=== PATIENT | male | born 1970 | race Caucasian/White ===

== ENCOUNTER 2021-05-27 10:43 | Emergency (ER) | payer OTHER, SELFPAY ==
[2021-05-27 10:49] VITALS: BP 155/89; PULSE 81; RESP 16; TEMP 36.6; O2SAT 100
[2021-05-27 10:51] VITALS: BP 155/89; PULSE 81; RESP 16; TEMP 36.6; O2SAT 100
--- NOTE | 2021-05-27 11:15 | ED.URI ---
HPI - URI/Sore Throat General Chief Complaint: Upper Respiratory Infection Stated Complaint: COUGH Time Seen by Provider: 05/27/21 11:09 Source: patient and RN notes reviewed Mode of arrival: ambulatory Limitations: no limitations History of Present Illness HPI Narrative: 51 year old male presents with concern for 10-day history of sinus congestion, drainage, cough. Reports cough keeping him awake at night, he has to sit up to sleep to improve cough. Reports he has been taking DayQuil and NyQuil [id number] with little relief. He denies fever, body aches, chills, sweats. Reports postnasal drainage. He denies diarrhea. Reports one episode of nausea and vomiting. Denies known sick contacts, has been fully vaccinated for Covid. Shamika has had 3 - Covid test. MD elicited complaint: nasal congestion Related Data Home Medications Medication Instructions Recorded Confirmed olmesartan 05/27/21 Allergies Allergy/AdvReac Type Severity Reaction Status Date / Time Penicillins Allergy Unknown Unknown Verified 09/15/17 10:24 Review of Systems Review of Systems: CONSTITUTIONAL: Reports malaise. Denies chills, sweats, or fever. EYES: Denies visual changes, redness, or discharge. ENT: Reports rhinorrhea, congestion, sinus pain. Denies otalgia and sore throat. CARDIOVASCULAR: Denies chest pain, palpitations, or edema. RESPIRATORY: Reports cough. Denies dyspnea. GASTROINTESTINAL: Denies abdominal pain, nausea, vomiting, diarrhea SKIN: Denies rash or itching. MUSCULOSKELETAL: Denies myalgia. NEUROLOGIC: Denies headache. All systems reviewed & are unremarkable except as noted in HPI and below PMFSH Family History Family History (Updated 09/15/17 @ 10:24 by DOCTOR UNKNOWN) Mother Family history of malignant neoplasm Social History Social History Smoking status: Former smoker Smoking end date: 08/11/04 Alcohol intake: current Comments At time of signature, agree with nursing past medical, surgical, social and family history. There is no relevant family history pertinent to the presenting complaint Exam Narrative: GENERAL: Well-appearing, well-nourished, and in no acute distress. HEAD: Normocephalic EYES: PERRLA, conjunctivae clear ENT: Nares clear, turbinates edematous and erythematous. Mucous membranes moist. TM pearly gomez with dull light reflex bilaterally; no tragal tenderness. Oropharynx not erythematous without lesions. Tonsils not enlarged and without exudate, no drooling, no hoarseness, no trismus, uvula midline. NECK: Supple. No lymphadenopathy CHEST: Clear to auscultation, breath sounds equal. No wheezing, rhonchi, rales, or stridor. No respiratory distress, speaks in full sentences. HEART: Regular rate and rhythm. No murmur heard. SKIN: Warm, dry, no rash. NEURO: Alert and oriented x3. PSYCH: Normal mood and affect Course Course Emergency Course: Patient is aware of diagnosis, understands and agrees to treatment plan. Anticipatory guidance given. Patient agrees to follow-up as directed and is aware of reasons to seek care at the emergency department. Portions of this record may have been created with voice recognition software Vital Signs Vital signs: Vital Signs Temperature 98 F 05/27/21 10:49 Pulse Rate 81 05/27/21 10:49 Respiratory Rate 16 05/27/21 10:49 Blood Pressure 155/89 H 05/27/21 10:49 Pulse Oximetry 100 05/27/21 10:49 Temperature 98 F 05/27/21 10:51 Pulse Rate 81 05/27/21 10:51 Respiratory Rate 16 05/27/21 10:51 Blood Pressure 155/89 H 05/27/21 10:51 Pulse Oximetry 100 05/27/21 10:51 Reviewed. MDM - URI/Sore Throat MDM Narrative Medical decision making narrative: Differential diagnosis considered: Frey virus, strep pharyngitis, allergic rhinitis, upper respiratory tract infection, sinusitis, rhinosinusitis, nasopharyngitis. viral pharyngitis, otitis media, otitis externa, pneumonia, bronchitis, viral cough syndrome, viral syndrome, and
== END 2021-05-27 11:26 | disposition home or self-care (01) ==
PROVIDERS: Emergency Provider Nurse Practitioner; PCP Internal Medicine
DX: J32.9 Chronic sinusitis, unspecified (principal); J40 Bronchitis, not specified as acute or chronic; Z87.891 Personal history of nicotine dependence
CPT/HCPCS: 99213; G0463

== ENCOUNTER 2021-12-12 10:16 | Emergency (ER) | payer OTHER, SELFPAY ==
[2021-12-12 10:20] VITALS: BP 145/86; PULSE 76; RESP 18; TEMP 36.5; O2SAT 97
--- NOTE | 2021-12-12 10:20 | ED.URI ---
HPI - URI/Sore Throat General Chief Complaint: Upper Respiratory Infection Stated Complaint: COUGH/CONGESTION/EXPOSURE TO BACTERIAL PNEUMONIA Time Seen by Provider: 12/12/21 10:21 Source: patient and RN notes reviewed History of Present Illness HPI Narrative: Patient is a 51-year-old male who presents the urgent care with complaints of coughing fits and chest congestion. Patient states that it started last night and he was unable to sleep flat due to the persistent coughing. Patient states he took ibuprofen and cold and sinus medication. Patient states that he was exposed to bacterial pneumonia at work. Patient denies of any fever, chills, nausea, vomiting, sore throat or shortness of breath. No other acute complaints. No acute distress noted. Patient aware of the plan of care. Some parts of this dictation were generated by voice recognition software and may contain typographical and/or grammatical inaccuracies. Related Data Home Medications Medication Instructions Recorded Confirmed olmesartan 20 mg DIRECTED 05/27/21 12/12/21 Allergies Allergy/AdvReac Type Severity Reaction Status Date / Time Penicillins Allergy Unknown Unknown Verified 09/15/17 10:24 Review of Systems Review of Systems: CONSTITUTIONAL: Denies fever, chills, or sweats. EYES: Denies visual changes, redness, or discharge. ENT: Denies rhinorrhea, congestion, sore throat, or otalgia. CARDIOVASCULAR: Denies chest pain, palpitations, or edema. RESPIRATORY: Reports of chest congestion and coughing fits GASTROINTESTINAL: Denies abdominal pain, nausea, vomiting, or diarrhea. GENITOURINARY: Denies dysuria or hematuria. SKIN: Denies rash or itching. MUSCULOSKELETAL: Denies back pain, joint pain, or myalgia. NEUROLOGIC: Denies headache, numbness, or weakness. All other systems reviewed are negative, except as documented in HPI. PMFSH Family History Family History (Updated 09/15/17 @ 10:24 by DOCTOR UNKNOWN) Mother Family history of malignant neoplasm Social History Social History Smoking status: Former smoker Smoking end date: 08/11/04 Alcohol intake: current Comments At the time of my signature, I reviewed and agree with the nursing past medical, surgical, social, and family history. There is no relevant family history pertinent to the patient complaint. Exam Narrative: GENERAL: This is a well-nourished, well-developed patient, in no apparent distress. HEAD: normocephalic, atraumatic. EYES: PERRL. Sclera clear/white. Vision is grossly intact. EARS: External ears normal, auditory canals clear and without drainage, TMs normal without perforation. Hearing grossly intact. NOSE: External nose normal with no obvious nasal discharge, nares without redness, no rhinorrhea. THROAT: Mucous membranes moist, posterior pharynx clear. Mild postnasal drainage NECK: Neck supple CARDIOVASCULAR: Regular rate and rhythm without murmurs, gallops, or rubs. RESPIRATORY: Clear to auscultation. Breath sounds equal bilaterally. No wheezes, rales, or rhonchi. SKIN: warm, intact with no suspicious lesions or rash, good texture and turgor. NEURO: awake, alert, and oriented to person, place and time. There were no obvious focal neurologic abnormalities. EXTREMITIES: No clubbing, cyanosis, or edema. Course Course Level of Care: Express Care Visit Vital Signs Vital signs: Vital Signs Temperature 97.7 F 12/12/21 10:20 Pulse Rate 76 12/12/21 10:20 Respiratory Rate 18 12/12/21 10:20 Blood Pressure 145/86 H 12/12/21 10:20 Pulse Oximetry 97 12/12/21 10:20 Temperature 97.7 F 12/12/21 10:20 Pulse Rate 76 12/12/21 10:20 Respiratory Rate 18 12/12/21 10:20 Blood Pressure 145/86 H 12/12/21 10:20 Pulse Oximetry 97 12/12/21 10:20 Reviewed-patient is informed that they may have pre-hypertension or hypertension based on a blood pressure reading in the department. I recommend the patient call the primary care provider listed on their dis
== END 2021-12-12 10:53 | disposition home or self-care (01) ==
PROVIDERS: Emergency Provider Nurse Practitioner Family; PCP Internal Medicine
DX: R05.9 Cough, unspecified (principal); Z87.891 Personal history of nicotine dependence
CPT/HCPCS: 87804; 99213; G0463

== ENCOUNTER 2023-07-03 11:46 | Emergency (ER) | payer OTHER, SELFPAY ==
--- NOTE | ~2023-07-03 | XR_ITS ---
EXAMINATION: XR chest 2V DATE: 07/03/2023 12:26 INDICATION: Cough TECHNIQUE: PA and lateral views of the chest are obtained. COMPARISON: None available FINDINGS: The lungs are free of acute opacities. No pleural effusion or pneumothorax. The cardiomedia stinal silhouette is normal. The visualized bones and soft tissues are unremarkable. IMPRESSION: 1. No acute cardiopulmonary abnormality. Reviewed, dictated and finalized at location [facility]
[2023-07-03 11:57] VITALS: BP 140/76; PULSE 92; RESP 18; TEMP 36.3; O2SAT 97
--- NOTE | 2023-07-03 12:16 | ED.GENADULT ---
HPI - General Adult General Chief complaint: Back Pain/Injury Stated complaint: cough, right side pain Time Seen by Provider: 07/03/23 11:58 History of Present Illness HPI narrative: Patient is a 53-year-old male with a history of hypertension presenting with cough and right rib pain. States that he has had an unproductive cough for the last several days. States that he has some pain in his right lower ribs that is exacerbated with his coughing fits. He denies any left-sided chest pain. No shortness of breath. No leg swelling. No hemoptysis. No fevers or chills. States that his wanted him to come in to get checked out. No further complaints. Related Data Home Medications Medication Instructions Recorded Confirmed olmesartan 20 mg tablet 20 mg PO DAILY 05/27/21 06/09/23 [id number] 200 mcg-vit K 100 1 cap PO DAILY 06/09/23 06/09/23 mcg-lycop 500 [id number] capsule (Daily Multivitamin) Allergies Allergy/AdvReac Type Severity Reaction Status Date / Time Penicillins Allergy Unknown Unknown Verified 06/09/23 11:00 Review of Systems Review of Systems: All systems reviewed & are unremarkable except as noted in HPI and below PMFSH Family History Family History Mother Family history of malignant neoplasm Social History Social History Years smoked: 5 Smoking status: Former smoker Tobacco type: cigarettes Smoking end date: 08/11/04 Alcohol intake: current Drinks per week: 1 Substance use type: does not use Living arrangements: alone Exam Narrative: GENERAL: Well-appearing, well-nourished, and in no acute distress. HEAD: Normocephalic, atraumatic. EYES: PERRLA and EOMI. ENT: Mucous membranes moist. NECK: Supple. CHEST: Clear to auscultation. No respiratory distress. No wheezing; no chest wall tenderness HEART: Regular rate and rhythm ABDOMEN: Soft, nontender, nondistended EXTREMITIES: No edema or erythema of bilateral lower extremities SKIN: Warm, dry, no rash. NEURO: Alert and oriented x3. PSYCH: Normal mood and affect. Course Vital Signs Vital signs: Vital Signs Temperature 97.4 F L 07/03/23 11:57 Pulse Rate 92 07/03/23 11:57 Respiratory Rate 18 07/03/23 11:57 Blood Pressure 140/76 07/03/23 11:57 Pulse Oximetry 97 07/03/23 11:57 Temperature 97.4 F L 07/03/23 11:57 Pulse Rate 67 07/03/23 13:44 Respiratory Rate 12 07/03/23 13:44 Blood Pressure 110/85 07/03/23 13:44 Pulse Oximetry 100 07/03/23 13:44 Oxygen Delivery Room Air 07/03/23 12:30 Medical Decision Making MDM Narrative Medical decision making narrative: Patient is a 53-year-old male presenting with a nonproductive cough and right rib pain with coughing fits. Vitals are within normal limits. Patient is well-appearing, exam is unremarkable. Chest x-ray without acute abnormalities. Patient is positive for COVID-19. Discussed appropriate supportive care and return precautions. Patient is safe for outpatient management. Advised PCP follow-up. Discharge condition stable condition. Differential Diagnosis Differential Diagnosis: Viral URI, COVID-19, influenza, pneumonia Medical Records Medical records reviewed: Yes I reviewed the external patient's medical records. Vital Signs Vital Signs: Vital Signs Temperature 97.4 F L 07/03/23 11:57 Pulse Rate 92 07/03/23 11:57 Respiratory Rate 18 07/03/23 11:57 Blood Pressure 140/76 07/03/23 11:57 Pulse Oximetry 97 07/03/23 11:57 Temperature 97.4 F L 07/03/23 11:57 Pulse Rate 67 07/03/23 13:44 Respiratory Rate 12 07/03/23 13:44 Blood Pressure 110/85 07/03/23 13:44 Pulse Oximetry 100 07/03/23 13:44 Oxygen Delivery Room Air 07/03/23 12:30 Lab Data Lab results reviewed: Yes I reviewed the patient's lab results. Labs: Lab Results 07/03/23 Range/Units
[2023-07-03] MEDS: KETOROLAC 30 MG/ML VIAL (*BKC) IM (12:26)
[2023-07-03 13:04] LABS: Influenza A QL RT-PCR Negative (Negative); Influenza B QL RT-PCR Negative (Negative); RSV RNA, RT-PCR Negative (Negative); SARS-CoV-2 RNA PCR Positive (Negative)
[2023-07-03 13:44] VITALS: BP 110/85; PULSE 67; RESP 12; O2SAT 100
== END 2023-07-03 13:46 | disposition home or self-care (01) ==
PROVIDERS: Emergency Provider Emergency Medicine; PCP Internal Medicine
DX: U07.1 COVID-19 (principal); Z87.891 Personal history of nicotine dependence
CPT/HCPCS: 71046; 87637; 96372; 99283; J1885

== ENCOUNTER 2023-08-06 00:28 | Day surgery (SDC) | payer OTHER, SELFPAY ==
[2023-08-01 09:06] VITALS: BMI 26.5
--- NOTE | 2023-08-05 11:37 | SUR.PREOP ---
Patient called regarding upcoming procedure. Reviewed preop instructions, appointment times, and procedure prep.
[2023-08-06 12:27] VITALS: BP 135/91; PULSE 66; RESP 18; TEMP 36.6; O2SAT 100; BMI 25.9
[2023-08-06] MEDS: LACTATED RINGERS 1,000 ML 150 ML IV CONT (12:38)
--- NOTE | 2023-08-06 12:50 | P.PNAN_ITS ---
Anes - Initial Pre Proc Eval Procedure: Operation Date: 08/06/23 13:30 Proposed Procedures p Colonoscopy - El Jarrett MD Date/Time: 08/06/23 12:50 Surgeon: El Jarrett MD Pre Op Diagnosis: other fecal abnormalities Patient Data Age: 53 Gender: M Height: 1.75 m Weight: 79.9 kg Last Vital Signs Temp 97.8 F 08/06/23 12: Pulse 66 08/06/23 12:27 Resp 18 08/06/23 12:27 BP 135/91 H 08/06/23 12:27 Pulse Ox 100 08/06/23 12:27 O2 Del Method Room Air 08/06/23 12:27 Allergies Allergy/AdvReac Type Severity Reaction Status Date / Time Penicillins Allergy Severe Anaphylaxis Verified 08/06/23 12:25 BEE STING Allergy Severe Anaphylaxis Uncoded 08/06/23 12:25 Home Medications Medication Instructions Recorded Confirmed Type olmesartan 20 mg tablet 20 mg PO DAILY 05/27/21 08/06/23 History [id number] 200 mcg-vit K 100 1 cap PO DAILY 06/09/23 08/06/23 History mcg-lycop 500 [id number]-P65 capsule (Daily Multivitamin) Patient hx anesthesia problems: none Family hx anesthesia problems: none Results Review: All pre-operative results and documents have been reviewed as part of the pre- operative evaluation. [facility] Family History Family History Mother Family history of malignant neoplasm Social History Social History Years smoked: 5 Smoking status: Former smoker Tobacco type: cigarettes Smoking end date: 08/11/04 Alcohol intake: current Drinks per week: 1 Substance use: never Substance use type: does not use Living arrangements: with family Spiritual care concerns: No Anes - Eval Final PreProcedure Day of Procedure 08/06/23 12:50 Patient weight: normal Heart: regular rate and rhythm Lungs: clear to auscultation Airway: Mallampati scale class II Neurological: alert and oriented Last oral intake: >/= 8 hours ASA classification: II Emergent: no Anesthetic plan: proceed Anesthesia type and monitoring: general GIVS and standard monitoring Results Review: All pre-operative results and documents have been reviewed as part of the pre- operative evaluation. Informed Consent: The patient's anesthetic plan and its attendant risks and benefits were discussed with the patient/family/POA. Questions were solicited and answers provided to the satisfaction of the patient/family/POA.
--- NOTE | 2023-08-06 13:04 | PM.HPGS ---
History of Present Illness History of Present Illness Consent: Risks, benefits, and alternatives have been discussed and questions answered. Patient agrees to proceed with procedure. Chief complaint: other fecal abnormalities Narrative: Philipp Pratt is a 53 year old male Referred for colon cancer screening. A recent Cologuard test was positive. Also, he has had loose stools the past couple of years. Review of Systems Review of Systems: All systems reviewed & are unremarkable except as noted in HPI and below PMFSH Family History Family History Mother Family history of malignant neoplasm Social History Social History Years smoked: 5 Smoking status: Former smoker Tobacco type: cigarettes Smoking end date: 08/11/04 Alcohol intake: current Drinks per week: 1 Substance use: never Substance use type: does not use Living arrangements: with family Spiritual care concerns: No Meds Home Medications and Allergies Home Medications Medication Instructions Recorded Confirmed Type olmesartan 20 mg tablet 20 mg PO DAILY 05/27/21 08/06/23 History [id number] 200 mcg-vit K 100 1 cap PO DAILY 06/09/23 08/06/23 History mcg-lycop 500 [id number]-roafwh-P45 capsule (Daily Multivitamin) Allergies Allergy/AdvReac Type Severity Reaction Status Date / Time Penicillins Allergy Severe Anaphylaxis Verified 08/06/23 12:25 BEE STING Allergy Severe Anaphylaxis Uncoded 08/06/23 12:25 Vital Signs Vital Signs - 24 hr 08/06/23 12:27 Temperature 36.6 C Pulse Rate 66 Respiratory Rate 18 Blood Pressure 135/91 H Pulse Oximetry 100 Oxygen Delivery Room Air Exam Const: General: alert Orientation/consciousness: patient oriented x3 Resp: Auscultation: clear to auscultation bilaterally Cardio: Rhythm: regular rhythm GI: GI Palp: Yes Soft to palpation and No Tenderness to palpation present (GI) Neuro: General: patient oriented x3 Assessment and Plan Assessment and plan (1) Colon cancer screening: Code(s): Z12.11 - Encounter for screening for malignant neoplasm of colon Status: Acute Assessment and Plan: Colonoscopy with possible biopsy or polypectomy or cautery or injection of substances.
[2023-08-06] MEDS: SIMETHICONE ORAL SUSPENSION 20 MG/0.3 ML 30 ML BOTTLE 0.6 ML IRRIGATION (13:15)
[2023-08-06 13:25] VITALS: BP 108/69; PULSE 70; RESP 19; O2SAT 97
[2023-08-06 13:35] VITALS: BP 105/69; PULSE 66; RESP 17; O2SAT 97
[2023-08-06 13:45] VITALS: BP 115/81; PULSE 82; RESP 17; O2SAT 100
== END 2023-08-06 13:49 | disposition home or self-care (01) ==
PROVIDERS: PCP Internal Medicine; Visit Provider Internal Medicine Gastroenterology
PROC: 0DJD8ZZ Inspection of Lower Intestinal Tract, Via Natural or Artificial Opening Endoscopic (ICD-10-PCS; CPT 45378; principal; 2023-08-06 13:30)
DX: Z12.11 Encounter for screening for malignant neoplasm of colon (principal); K63.5 Polyp of colon; K57.30 Diverticulosis of large intestine without perforation or abscess without bleeding; R19.5 Other fecal abnormalities; Z87.891 Personal history of nicotine dependence; Z80.9 Family history of malignant neoplasm, unspecified
CPT/HCPCS: 45385; 88305; J2704; J7120

== ENCOUNTER 2024-03-29 14:52 | Emergency (ER) | payer OTHER, SELFPAY ==
--- NOTE | 2024-03-29 14:55 | ED.EXTPRO ---
HPI - Extremity Problem General Chief complaint: Skin/Abscess/Foreign Body Stated complaint: Swollen Finger Right Hand Time Seen by Provider: 03/29/24 14:55 Source: patient Mode of arrival: ambulatory Limitations: no limitations History of Present Illness HPI Narrative: Philipp is a 54-year-old male patient presenting to the clinic today with complaints of finger swelling to the right index finger. He reports he was stung by a yellow jacket yesterday. States that his finger is itchy and swollen and the swelling is going up into his hand. Denies any fever, body aches, or chills. Denies any shortness of breath or chest pain. History of anaphylactic reaction to bee stings. He is able to speak in full sentences without having any respiratory difficulty. Related Data Home Medications Medication Instructions Recorded Confirmed olmesartan 20 mg tablet 20 mg PO DAILY 05/27/21 03/29/24 [id number] 200 mcg-vit K 100 1 cap PO DAILY 06/09/23 08/06/23 mcg-lycop 500 [id number] capsule (Daily Multivitamin) Allergies Allergy/AdvReac Type Severity Reaction Status Date / Time Penicillins Allergy Severe Anaphylaxis Verified 03/29/24 14:58 BEE STING Allergy Severe Anaphylaxis Uncoded 03/29/24 14:58 Review of Systems Review of Systems: Pertinent positives per HPI. Patient denies any fever, chills, headache, visual changes, dizziness, cough, runny nose, sore throat, shortness of breath, chest pain, palpitations, nausea, vomiting, diarrhea, constipation, abdominal pain, or any urinary issues. PMFSH Family History Family History Mother Family history of malignant neoplasm Social History Social History Years smoked: 5 Smoking status: Former smoker Tobacco type: cigarettes Smoking end date: 08/11/04 Alcohol intake: current Drinks per week: 1 Substance use: never Substance use type: does not use Living arrangements: with family Spiritual care concerns: No Comments At the time of my signature, I reviewed and agree with the nursing past medical, surgical, social, and family history. There is no relevant family history pertinent to the patient complaint. Exam Narrative: General: Well-developed, well nourished, in no apparent distress Head: Normocephalic, atraumatic. Cardio: Regular rate and rhythm, s1 and s2 normal, no murmur appreciated. Resp: Clear to auscultation bilaterally, no rhonchi, rales, wheezing or rubs. Musculoskeletal: No deformity, redness and swelling to the right index finger with a stinger puncture wound to the medial distal finger, no obvious foreign body in the finger. Area is swollen and itching, mild tender to palpation, grossly normal range of motion, muscle strength strong and equal, peripheral pulse strong, no cyanosis, normal gait and station Course Course Emergency Course: Portions of this record may have been created with voice recognition software. Level of Care: Express Care Visit Vital Signs Vital signs: Vital signs reviewed MDM - Extremity (Nontraumatic) MDM Narrative Medical decision making narrative: At the time of visit patient is resting comfortably on the exam table. Patient appears to be nontoxic. Plan: I suspect patient has allergic reaction to an insect sting. Prescription for prednisone and triamcinolone cream was sent to the pharmacy. Supportive measures were discussed with the patient and they voiced understanding discharge instructions and agrees to treatment plan. Return precautions reviewed Differential Diagnosis Differential diagnosis: Likely cellulitis and other (Insect sting, general allergic reaction, contact dermatitis, retained foreign body) Discharge Plan Discharge Clinical Impression: Allergic reaction to insect sting Qualifiers: Encounter type: initial encounter Injury intent: accidental or unintentional Q
[2024-03-29 15:01] VITALS: BP 147/106; PULSE 76; RESP 14; TEMP 36.8; O2SAT 97
== END 2024-03-29 15:10 | disposition home or self-care (01) ==
PROVIDERS: Emergency Provider Nurse Practitioner Family; PCP Internal Medicine
DX: T63.461A Toxic effect of venom of wasps, accidental (unintentional), initial encounter (principal); Z87.891 Personal history of nicotine dependence
CPT/HCPCS: 99213; G0463

== ENCOUNTER 2024-11-29 16:28 | Outpatient (CLI) | payer OTHER, SELFPAY ==
--- NOTE | ~2024-11-29 | XR_ITS ---
Cervical Spine: AP, lateral, open-mouth views Clinical History: Pain Findings: The normal lordotic curve is maintained. No fracture or subluxation seen. There is moderate degenerative disc narrowing at C6-C7. There is moderate to advanced facet arthropathy throughout the cervical spine. Pre-vertebral soft tissues are unremarkable. Impression: Moderate degenerative spondylosis overall, as above. Reviewed, dictated and finalized at [facility]. Impression: Moderate degenerative spondylosis overall, as above.
== END 2024-11-29 16:29 | disposition home or self-care (01) ==
LOC: MICIMG 16:31
PROVIDERS: PCP Internal Medicine; Visit Provider Internal Medicine
DX: M47.892 Other spondylosis, cervical region (principal)
CPT/HCPCS: 72040